=== PATIENT | female | born 1985 | race Caucasian/White ===

== ENCOUNTER → 2018-06-10 | Outpatient (CLI) | payer MEDICAID ==
[~2018-06-10] MED LIST: BUTORPHANOL 2 MG INJ IV; CARBOPROST 250 MCG INJ IM; IBUPROFEN 600 MG TAB PO; LACTATED RINGER'S 1,000 ML IV; LIDOCAINE 1% (MPF) 30 ML INJ INJ; METHYLERGONOVINE 0.2 MG INJ IM; MISOPROSTOL 200 MCG TAB PR; OXYTOCIN 30 UNITS/LR 500 ML IV
== END | disposition home or self-care (01) ==
LOC: U/S 12:10 → L-D 06-29 06:22 → U/S 06-29 06:10
DX: O20.0 Threatened abortion (principal); Z3A.00 Weeks of gestation of pregnancy not specified
CPT/HCPCS: 76801

== ENCOUNTER 2018-06-29 03:39 | Inpatient (IN) | payer MEDICAID ==
[2018-06-29] MEDS: SOD CHLORIDE 0.9% 1,000 ML IV (04:29)
[2018-06-29 04:39] LABS: ADD MAN DIFF? NO
[2018-06-29 04:42] LABS: ABNORMAL IP MESSAGE 1; BASOPHIL # 0.1 10^3/ul (0.0-0.1); BASOPHILS % 0.4 % (0.0-2.0); EOSINOPHILS % 0.1 % (0.0-7.0); HEMATOCRIT 35.3 % (37.0-47.0); HEMOGLOBIN 11.9 g/dl (12.0-16.0); LYMPHOCYTES # 1.6 10^3/ul (0.8-2.9); LYMPHOCYTES % 6.7 % (15.0-51.0); MEAN CORPUSCULAR HEMOGLOBIN 29.2 pg (29.0-33.0); MEAN CORPUSCULAR HGB CONC 33.7 g/dl (32.0-37.0); MEAN CORPUSCULAR VOLUME 86.7 fl (82.0-101.0); MEAN PLATELET VOLUME 10.1 fl (7.4-10.4); MONOCYTE # 1.7 10^3/ul (0.3-0.9); MONOCYTES % 7.4 % (0.0-11.0); NEUTROPHIL # 19.6 10^3/ul (1.6-7.5); NEUTROPHILS % 84.8 % (39.0-77.0); PLATELET COUNT 243 10^3/UL (140-415); RED BLOOD COUNT 4.07 10^6/ul (4.20-5.40); RED CELL DISTRIBUTION WIDTH 12.4 % (11.5-14.5)
[2018-06-29 04:42] LABS: WHITE BLOOD COUNT 23.2 10^3/ul (4.8-10.8)
[2018-06-29] MEDS: morphine 2 MG INJ IV ×2 (05:03→06:07)
[2018-06-29] MEDS: ONDANSETRON 4 MG INJ IV (05:03)
[2018-06-29 05:09] LABS: ANION GAP 5 (5-13); BLOOD UREA NITROGEN 9 mg/dl (7-20); CALCIUM 9.2 mg/dl (8.4-10.2); CARBON DIOXIDE 23 mmol/L (21-31); CHLORIDE 107 mmol/L (97-110); CREATININE 0.55 mg/dl (0.44-1.00); Estimated GFR > 60 mL/min (>60); GLUCOSE 113 mg/dl (70-220); POTASSIUM 3.6 mmol/L (3.5-5.1); SODIUM 135 mmol/L (135-144)
[2018-06-29 05:11] LABS: POSITIVE DIFF @See below
[2018-06-29 05:17] LABS: ADD UMIC YES; UR AMORPHOUS CRYSTAL FEW /HPF (NONE SEEN); UR ASCORBIC ACID NEGATIVE (NEGATIVE); UR BACTERIA FEW /HPF (NONE SEEN); UR BILIRUBIN (Dip) NEGATIVE (NEGATIVE); UR BLOOD (Dip) 2+ mg/dL (NEGATIVE); UR CLARITY TURBID (CLEAR); UR COLOR YELLOW (YELLOW); UR GLUCOSE (Dip) 1+ mg/dL (NEGATIVE); UR KETONES (Dip) NEGATIVE (NEGATIVE); UR LEUKOCYTE ESTERASE (Dip) 1+ Leu/ul (NEGATIVE); UR NITRITE (Dip) NEGATIVE (NEGATIVE); UR RBC 22 /HPF (0-5); UR SPECIFIC GRAVITY (Dip) 1.014 (1.003-1.030); UR SQUAMOUS EPITHELIAL CELL FEW /HPF (FEW); UR TOTAL PROTEIN (Dip) 1+ mg/dl (NEGATIVE); UR UROBILINOGEN (Dip) NEGATIVE (NEGATIVE); UR WBC 10 /HPF (0-5)
[2018-06-29] MEDS: AMPICILLIN 2 GM/NS (PMX) 100 ML IVPB ×3 (05:45→17:39)
[2018-06-29] MEDS ORDERED: ONDANSETRON 4 MG INJ (07:00)
[2018-06-29] MEDS ORDERED: ONDANSETRON 4 MG INJ IV ×2 (07:30→09:30)
[2018-06-29] MEDS ORDERED: LACTATED RINGER'S 1,000 ML IV (07:32)
[2018-06-29 07:48] LABS: ABNORMAL IP MESSAGE 1; ADD MAN DIFF? YES; HEMATOCRIT 33.8 % (37.0-47.0); HEMOGLOBIN 11.5 g/dl (12.0-16.0); MEAN CORPUSCULAR HEMOGLOBIN 29.5 pg (29.0-33.0); MEAN CORPUSCULAR VOLUME 86.7 fl (82.0-101.0); MEAN PLATELET VOLUME 9.9 fl (7.4-10.4); PLATELET COUNT 238 10^3/UL (140-415); POSITIVE DIFF @See below; RED CELL DISTRIBUTION WIDTH 12.5 % (11.5-14.5)
[2018-06-29 07:48] LABS: WHITE BLOOD COUNT 26.7 10^3/ul (4.8-10.8)
[2018-06-29] MEDS ORDERED: MISOPROSTOL 200 MCG TAB PR (08:00)
[2018-06-29] MEDS ORDERED: METHYLERGONOVINE 0.2 MG INJ IM (08:00)
[2018-06-29] MEDS ORDERED: LIDOCAINE 1% (MPF) 30 ML INJ INJ (08:00)
[2018-06-29] MEDS ORDERED: BUTORPHANOL 2 MG INJ IV (08:00)
[2018-06-29] MEDS ORDERED: OXYTOCIN 30 UNITS/LR 500 ML IV ×3 (08:00→08:30)
[2018-06-29] MEDS ORDERED: CARBOPROST 250 MCG INJ IM (08:00)
[2018-06-29 08:07] LABS: INR 0.91; PROTIME 12.4 Sec (11.9-14.9)
[2018-06-29 08:08] LABS: PARTIAL THROMBOPLASTIN TIME 27.2 Sec (23.0-35.0)
[2018-06-29 08:11] LABS: ANISOCYTOSIS 1+ (0-0); BAND NEUTROPHILS #M 0.2 10^3/ul (0.0-0.6); BAND NEUTROPHILS % (M) 1 % (0-4); LYMPHOCYTES #M 0.5 10^3/ul (0.8-2.9); LYMPHOCYTES % (M) 2 % (15-51); MICROCYTOSIS 1+ (0-0); MONOCYTE #M 2.1 10^3/ul (0.3-0.9); MONOCYTES % (M) 8 % (0-11); PLATELET ESTIMATE NORMAL; RBC MORPHOLOGY COMMENT @See below; SEG NEUT #M 23.8 10^3/ul (1.6-7.5); SEGMENTED NEUTROPHILS (M) % 89 % (39-77); SMUDGE%M 7 % (0-0); WBC MORPHOLOGY COMMENT @See below
[2018-06-29] MEDS ORDERED: MIDAZOLAM 1 MG/ML 2 ML INJ ×2 (08:34→09:11)
[2018-06-29] MEDS ORDERED: METOCLOPRAMIDE 10 MG INJ ×2 (08:35→09:09)
[2018-06-29] MEDS ORDERED: FENTAnyl 50 MCG/ML VIAL (08:35)
[2018-06-29 08:38] LABS: HEPATITIS B SURFACE ANTIGEN NEGATIVE (NEGATIVE)
[2018-06-29] MEDS ORDERED: PROPOFOL 40 ML (08:38)
[2018-06-29] MEDS ORDERED: KETOROLAC 30 MG INJ (08:51)
[2018-06-29] MEDS ORDERED: morphine SULFATE/PF (10 MG/10 ML) INJ (09:00)
[2018-06-29] MEDS ORDERED: BUPIVACAINE 0.75%/DEXT (SPINAL) 2 ML INJ (09:00)
[2018-06-29] MEDS ORDERED: CEFAZOLIN 1 GM INJ (09:05)
[2018-06-29] MEDS: LACTATED RINGER'S 1,000 ML IV ×3 (09:24→15:32)
[2018-06-29] MEDS ORDERED: KETOROLAC 60 MG INJ IM (09:30)
[2018-06-29] MEDS ORDERED: HYDROmorphONE 1 MG/5 ML IV SYRINGE IV ×3 (09:30)
[2018-06-29] MEDS ORDERED: OXYCODONE/ACETAMINOPHEN (5/325) TAB PO ×2 (09:30)
[2018-06-29] MEDS ORDERED: MIDAZOLAM 1 MG/ML 2 ML INJ IV (09:30)
[2018-06-29] MEDS ORDERED: KETOROLAC 30 MG INJ IV (09:30)
[2018-06-29] MEDS ORDERED: KETOROLAC 15 MG INJ IV (09:30)
[2018-06-29] MEDS ORDERED: DIPHENHYDRAMINE 50 MG INJ IV (09:30)
[2018-06-29] MEDS ORDERED: MEPERIDINE 25 MG INJ IV (09:30)
[2018-06-29] MEDS ORDERED: METOCLOPRAMIDE 10 MG INJ IV (09:30)
[2018-06-29] MEDS: GENTAMICIN 80 MG/NS (PMX) 50 ML IVPB ×2 (09:54→17:39)
[2018-06-29] MEDS: OXYTOCIN 30 UNITS/LR 500 ML IV (10:03)
[2018-06-29] MEDS: ACETAMINOPHEN 325 MG TAB PO ×2 (10:29→12:53)
[2018-06-29 10:50] LABS: AMPHETAMINE/METHAMPHETAMINE Negative (NEGATIVE); BARBITURATES Negative (NEGATIVE); BENZODIAZEPINES Negative (NEGATIVE); CANNABINOIDS Negative (NEGATIVE); COCAINE Negative (NEGATIVE)
[2018-06-29 10:57] LABS: OPIATES Positive (NEGATIVE)
[2018-06-29] MEDS: CLINDAMYCIN 900 MG/D5W (PMX) 50 ML IVPB ×2 (11:16→21:51)
[2018-06-29] MEDS: OXYCODONE/ACETAMINOPHEN (5/325) TAB PO (15:13)
[2018-06-29 19:50] LABS: RAPID PLASMA REAGIN NONREACTIVE (NR)
[2018-06-29] MEDS: IBUPROFEN 600 MG TAB PO (21:29)
[2018-06-30] MEDS: AMPICILLIN 2 GM/NS (PMX) 100 ML IVPB ×5 (00:31→23:09)
[2018-06-30] MEDS: GENTAMICIN 80 MG/NS (PMX) 50 ML IVPB ×3 (00:31→17:44)
[2018-06-30] MEDS: LACTATED RINGER'S 1,000 ML IV ×3 (05:12→20:27)
[2018-06-30] MEDS: ACETAMINOPHEN 325 MG TAB PO ×2 (05:12→11:58)
[2018-06-30] MEDS: CLINDAMYCIN 900 MG/D5W (PMX) 50 ML IVPB ×2 (08:33→21:03)
[2018-06-30] MEDS: DIPHENHYDRAMINE 25 MG CAP PO (23:08)
[2018-07-01] MEDS: GENTAMICIN 80 MG/NS (PMX) 50 ML IVPB ×2 (00:53→09:12)
[2018-07-01] MEDS: LACTATED RINGER'S 1,000 ML IV (05:14)
[2018-07-01] MEDS: AMPICILLIN 2 GM/NS (PMX) 100 ML IVPB (06:03)
[2018-07-01] MEDS: CLINDAMYCIN 900 MG/D5W (PMX) 50 ML IVPB (09:12)
== END 2018-07-01 12:30 | disposition home or self-care (01) | DRG 797 ==
LOC: 2NE 06:19 → FTE 03:39 → L-D 07:13 → 2NE 11:54
PROC: 10E0XZZ Delivery of Products of Conception, External Approach (ICD-10-PCS; principal; 2018-06-29)
PROC: 10D17ZZ Extraction of Products of Conception, Retained, Via Natural or Artificial Opening (ICD-10-PCS; 2018-06-29)
DX: O03.4 Incomplete spontaneous abortion without complication (principal); O36.4XX0 Maternal care for intrauterine death, not applicable or unspecified; Z37.1 Single stillbirth; O41.02X0 Oligohydramnios, second trimester, not applicable or unspecified; Z3A.16 16 weeks gestation of pregnancy; O73.0 Retained placenta without hemorrhage
CPT/HCPCS: 36415; 76805; 80048; 80307; 81001; 85025; 85610; 85730; 86592; 86900; 86901; 87040; 87086; 87340; 88307; 88309; 96374; 96375; 96376; 99285-25